=== PATIENT | male | born 1995 | race Caucasian/White ===

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

== ENCOUNTER 2017-06-12 12:43 | Emergency (ER) | payer BC ==
[~2017-06-12] VITALS: Ht 172.7 cm; Wt 73.7 kg
[2017-06-12 12:48] VITALS: TEMP 36.8; Ht 172.7 cm; Wt 73.7 kg
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
[2017-06-12] MEDS ORDERED: AMOX875T PO (14:29)
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
[2017-06-12] MEDS ORDERED: AMOXICILLIN/CLAVULANATE TAB 875 MG TAB PO STA (14:47)
[2017-06-12 14:54] VITALS: BP 160/87; PULSE 73; O2SAT 97
== END 2017-06-12 14:55 | disposition home or self-care (01) ==
LOC: C.EDB 12:45 → C.EDD 14:55
DX: S02.82XA Fracture of other specified skull and facial bones, left side, initial encounter for closed fracture (principal); W51.XXXA Accidental striking against or bumped into by another person, initial encounter; Y93.71 Activity, boxing; Y99.8 Other external cause status; F17.200 Nicotine dependence, unspecified, uncomplicated; Z98.890 Other specified postprocedural states

== ENCOUNTER 2018-01-29 10:21 | Emergency (ER) | payer BC ==
[~2018-01-29] VITALS: Ht 175.3 cm; Wt 71.0 kg
[2018-01-29 10:30] VITALS: TEMP 36.4; Ht 175.3 cm; Wt 71.0 kg
[2018-01-29] MEDS ORDERED: LIDOCAINE/EPINEPHRINE 1% 20 ML VIAL INFIL STA (11:12)
--- NOTE | 2018-01-29 11:47 | EMERGENCY ROOM VISIT NOTE ---
ED Visit Note First contact with patient: 10:52 Chief Complaint: "Cut on head". History of Present Illness: This patient is a 22-year-old male who presents to the Emergency Department for evaluation of their via private vehicle for evaluation of the anterior scalp laceration. Patient sustained the laceration while sitting in a chair, and a picture frame fell and struck him on the head. They report a minimal amount of bleeding initially. They report no loss of consciousness. They deny any headache, visual disturbance, nausea, vomiting, or neck pain. He states that his tetanus is up-to-date. This occurred yesterday around 11:30 PM. He denies any broken glass. There is no headache, loss of consciousness or history of concussion. Patient rates his current discomfort as a 0/10. Patient's Tetanus status is believed to be currently up-to-date. 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 ROS: All pertinent positive and negative review of systems are appropriately documented in the History of Present Illness. Physical Exam: VITAL SIGNS - Vital signs and nursing notes were reviewed. Stable. GENERAL -22-year-old male appearing his stated age. Communicates well with provider and answers questions appropriately. SKIN - There is a 3 cm laceration noted anterior scalp still within the hair midline. The edges gape apart with traction. There is minimal active bleeding appreciated. No deep structures including vessels, musculature, or bony structures are appreciated. HEAD - Normocephalic. No Rao's Sign or Raccoon's Eyes. No depressed skull fractures palpable. EYES - PERRL with EOMI bilaterally. Without subconjunctival hemorrhage. Palpebral conjunctiva pink and moist with no injection. EARS - No deformities of external structures noted on gross examination bilaterally. No hemotympanum present. No tympanic perforation noted. NOSE - Midline and without cyanosis. No epistaxis or clear watery discharge noted. Septum midline without deviation. No septal hematoma noted. No overlying ecchymosis noted. MOUTH/OROPHARYNX - Without perioral cyanosis. Tongue midline with equal elevation of palate bilaterally. No blood noted in the oropharynx. No tonsillar hypertrophy, erythema, or exudates noted. No dental fractures noted. NECK - FROM assessed. No tenderness to palpation over the cervical spinous processes. LUNGS - Chest wall symmetric without accessory muscle use, intercostals retractions, or central cyanosis. CARDIAC - RRR with S1/S2. No murmur, rubs, or gallops appreciated. EXTREMITIES - No gross deformities noted of the extremities. +5/5 strength noted in UE/LE bilaterally. NEUROLOGIC - Cranial nerves II through XII grossly intact. Sensory intact to light touch throughout. PSYCH - A&O, and cooperates fully with examiner. Pt is very pleasant and interacts well with examiner. ED Course: Patient was seen and evaluated by myself. Patient had no focal neurological deficits. Patient's exam is otherwise unremarkable. Patient reports no headaches , visual disturbances, nausea, vomiting, or over-lethargy. Risks and benefits of performing primary wound closure versus no repair were discussed with the patient who verbalizes understanding. Verbal consent was obtained prior to performing the procedure. 3 cc of 1% buffered lidocaine was used to anesthetize the anterior scalp laceration. The wound was cleansed and prepped in the typical sterile fashion utilizing normal saline and Betadine. The wound was sterilely draped. Once proper anesthetization was established, the wound was further examined and demonstrated no deep involvement. The wound was copiously irrigated with normal saline and Betadine. The wound was closed using 4 mari with the wound edges being well approximated. Patient tolerated the procedure well. No complications were met. The wound was cleansed and dressed with a Bacitracin dressing. Patient educated on worrisome symptoms for return visit to the Emergency Department. Patient discharged to home in good condition. Current/Historical Medications No Active Prescriptions or Reported Meds Allergies Coded Allergies: No Known Allergies (Unverified , 01/29/18) Vital Signs Date Time Temp Pulse Resp B/P (MAP) Pulse Ox O2 Delivery O2 Flow Rate FiO2 01/29/18 11:56 72 16 127/79 97 01/29/18 10:30 36.4 79 18 133/90 96 Room Air Departure Information Impression Primary Impression: Laceration Dispostion Home / Self-Care Condition GOOD Prescriptions No Active Prescriptions or Reported Meds Referrals [facility] (PCP) Patient Instructions My [facility] Additional Instructions Discharge Instructions: You have received 4 mari on your scalp. These mari are NOT dissolvable and WILL need to be removed by a health care provider in 7-10 days. You can return to the Emergency Department or contact your Primary Care Provider to have these mari removed. Proper wound care is essential for adequate wound healing and infection prevention. You can shower and clean the wound with soap and water. Do scour over the wound, pat dry with a towel. Do not submerse the wound until the mari have been removed. You can use an antibiotic ointment with a dressing over the wound for the next 3-4 days. After this time you may leave the wound dry and open to the air. If crust develops over the wound you can use a Q-tip to apply a 1:1 peroxide:water solution to clean the wound. Look for signs of infection of the wound including: increased pain, swelling, foul discharge, streaking, or increased temperature. If any of these are noticed you should return to the Emergency Department for further assessment and treatment. As with any laceration you may have received nerve damage to the surrounding tissues. This damage may or may not be permanent. For pain control, you can use the following [id number] medicines (if >12 yo): - Regular strength (325mg/tab) Tylenol (acetaminophen) 2 tabs every 4-6 hours as needed. Do not exceed 12 tablets in a 24 hour period. Avoid taking more than 3 grams (3000 mg) of Tylenol per day. This includes any other sources of acetaminophen you may take on a regular basis. - Regular strength (200 mg/tab) Advil (ibuprofen) 1-2 tabs every 4-6 hours as needed. Do not exceed a dose of 3200 mg per day. Return to the emergency department if your symptoms worsen despite treatment course outlined above.
[2018-01-29 11:56] VITALS: BP 127/79; PULSE 72; O2SAT 97
== END 2018-01-29 11:57 | disposition home or self-care (01) ==
LOC: C.EDB 10:23 → C.EDD 11:57
DX: S01.01XA Laceration without foreign body of scalp, initial encounter (principal); W20.8XXA Other cause of strike by thrown, projected or falling object, initial encounter

== ENCOUNTER 2018-02-06 13:53 | Emergency (ER) | payer BC ==
[~2018-02-06] VITALS: Ht 180.3 cm; Wt 71.6 kg
[2018-02-06 14:09] VITALS: Ht 180.3 cm; Wt 71.6 kg
--- NOTE | 2018-02-06 14:21 | EMERGENCY ROOM VISIT NOTE ---
ED Visit Note First contact with patient: 14:13 CHIEF COMPLAINT: Staple removal This patient returns to the ED today for removal of mari that were placed 8 days ago. There has been no swelling, redness, or drainage from the wound. The patient feels like the laceration is healing well. REVIEW OF SYSTEMS: Head: No headache, injury or neck pain. Skin: No rash, new lesions, or masses. General: No fever or chills, fatigue, loss of appetite , or significant recent weight gain or loss. PMH: Reviewed and unchanged from prior visit SOCIAL HISTORY: Patient lives at home. PHYSICAL EXAM: Vital Signs: Reviewed Nurse's notes. There is a stapled wound on the scalp of the upper forehead in the hairline with no signs of infection. There is no erythema, swelling, or tenderness. EMERGENCY DEPARTMENT COURSE: The mari were removed without any difficulty and there was no separation of the wound edges. DIAGNOSIS: Healing laceration and staple removal DISCHARGE INSTRUCTIONS AND TREATMENT: Wash any remaining crusts off of the wound today and resume your normal activities. Current/Historical Medications No Active Prescriptions or Reported Meds Allergies Coded Allergies: No Known Allergies (Unverified , 01/29/18) Vital Signs Date Time Temp Pulse Resp B/P (MAP) Pulse Ox O2 Delivery O2 Flow Rate FiO2 02/06/18 14:09 36.8 104 20 125/77 97 Departure Information Impression Primary Impression: Encounter for removal of mari Prescriptions No Active Prescriptions or Reported Meds Referrals [facility] (PCP) Patient Instructions My [facility]
[2018-02-06 14:24] VITALS: BP 125/77; PULSE 104; TEMP 36.8; O2SAT 97
== END 2018-02-06 14:25 | disposition home or self-care (01) ==
LOC: C.EDB 13:54 → C.EDD 14:25
DX: Z48.02 Encounter for removal of sutures (principal); S01.81XD Laceration without foreign body of other part of head, subsequent encounter; X58.XXXD Exposure to other specified factors, subsequent encounter